=== PATIENT | male | born 1980 | race Caucasian/White ===

== ENCOUNTER 2020-04-28 17:07 | Emergency (ER) | payer OTHER, SELFPAY ==
[2020-04-28 17:18] VITALS: BMI 28.0
[2020-04-28 17:20] VITALS: BP 135/75; PULSE 58; RESP 16; TEMP 36.9; O2SAT 96
--- NOTE | 2020-04-28 17:28 | W.ED.ABDPA2 ---
HPI - Abdominal Pain General: Chief Complaint: Abdominal Pain Stated Complaint: ABD PAIN Time Seen by Provider: 04/28/20 17:28 Source: patient Mode of arrival: ambulatory Limitations: no limitations History of Present Illness: HPI narrative: 39-year-old male comes in today with right lower quadrant pain. Patient reports last night he started having right-sided abdominal pain that caused him become sick and throw up twice. Patient reports this morning his pain was better but has started to increase throughout the day. Patient had been seen in urgent care this morning and was started on some omeprazole for concerns of possible reflux. Patient also has a history of Gilbert's syndrome. Patient appears mildly unwell. Patient appears in moderate pain. Associated Symptoms: Reports nausea and vomiting Review of Systems General: Reports: 10 or more systems reviewed and unremarkable except in HPI and below GI: Reports: abdominal pain, nausea and vomiting PFS ED PFSH: Social History Smoking and tobacco status: never smoked Alcohol intake: never Physical Exam Const: COMMON NORMALS: no acute distress and patient oriented x3 GENERAL APPEARANCE: cooperative HENMT: COMMON NORMALS: normocephalic and Normal external nose present HEAD & SCALP: normal to inspection and normocephalic NOSE: Normal external nose present THROAT: posterior oropharynx normal Eye: GENERAL EYE: appearance normal, both eyes and all related structures Neck/C-Spine: COMMON NORMALS: full ROM Chest: COMMONS NORMALS: normal inspection of the chest Resp: COMMON NORMALS: normal respiratory effort EFFORT & INSPECTION: Yes able to speak in complete sentences Cardio: COMMON NORMALS: regular rate and regular rhythm RATE: regular rate RHYTHM: regular rhythm GI: COMMON NORMALS: Soft to palpation AUSCULTATION: Yes normoactive bowel sounds PALPATION: Yes Soft to palpation, Yes Tenderness to palpation present (GI) Details: RLQ and Yes Other GI palpation findings present (positive psoas sign) : COMMON NORMALS: Yes no CVA tenderness BLADDER/KIDNEY EXAM: Yes no CVA tenderness Back/Pelvis: COMMON NORMALS: no CVA tenderness and thoracic and lumbar spine normal to inspection Extremity: COMMON NORMALS: normal to inspection Neuro: COMMON NORMALS: patient oriented x3 and moves all extremities Psych: COMMON NORMALS: mental status grossly normal and cooperative Skin: COMMON NORMALS: no rashes or lesions noted NARRATIVE SKIN EXAM: mild jaundice GENERAL SKIN EXAM: no rashes or lesions noted Course Vital Signs: Vital signs: Vital Signs Temperature 98.4 F 04/28/20 17:20 Pulse Rate 58 L 04/28/20 17:20 Respiratory Rate 18 04/28/20 17:55 Blood Pressure 135/75 04/28/20 17:20 Pulse Oximetry 96 04/28/20 17:20 MDM - Abdominal Pain MDM Narrative: Medical decision making narrative: 39-year-old male patient comes in with right abdominal pain starting last evening. Patient also reported a couple episodes of emesis. Patient appears well. Patient appears in mild to moderate pain in the ER. Exam noted some right lower quadrant abdominal tenderness and a positive psoas sign. Bowel sounds were present. Patient was afebrile. Vital signs otherwise were normal. Differential diagnosis includes but not limited to appendicitis, cholecystitis, gastroenteritis, constipation. CBC was normal. CMP noted some mild elevation ALTs and AST's which are liver enzymes but they were not too significant. Lipase was normal. Urinalysis was normal. Patient did have some significant elevation in bilirubin which was removed believed to be related to his Gilbert's syndrome. CT scan of the abdomen and pelvis noted a large gallbladder which may or may not have some inflammation with recommendations for ultrasound follow-up. Appendix was normal. And noted some chronic constipation. Ultrasound was done then of the gallbladder and noted it to be normal. Patient was medicated with normal saline 1 L and 4 mg of morphine and 4 mg of ondansetron. Patient did have good results for pain control and appeared better. Discussed abnormalities with patient recommended magcitrate 1 bottle with follow-up as needed. Also recommend return to the ER for fever or blood in vomit or stool. Patient reported understanding agreed to plan. Lab Data: Labs: Lab Results 04/28/20 04/28/20 04/28/20 Range/Units 17:50 17:50 17:57 WBC 9.1 (4.0-10.0) 10^3/ uL RBC 4.71 (4.1-5.3) 10^6/u L Hgb 15.4 (11.7-16.6) g/dL Hct 42.6 (42.0-52.0) % MCV 90.4 (80-94) fL MCH 32.7 (28.0-34.0) pg MCHC 36.2 H (30.0-36.0) g/dL RDW 11.9 L (12.1-15.1) % Plt Count 237 (130-400) 10^3/c mm MPV 9.5 (7.4-10.4) fL Neut % (Auto) 80.3 % Lymph % (Auto) 11.6 % [place] % (Auto) 6.9 % Eos % (Auto) 0.7 % Baso % (Auto) 0.2 % Neut # (Auto) 7.27 (1.8-7.7) 10^3/u L Lymph # (Auto) 1.1 (0.8-4.8) 10^3/u L [place] # (Auto) 0.6 (0.2-0.9) 10^3/u L Eos # (Auto) 0.1 (0.0-0.8) 10^3/u L Baso # (Auto) 0.0 (0.0-0.1) 10^3/u L Nucleated RBC % (a uto) 0 % Nucleated RBCs # 0.0 /100WBC Sodium 137 (136-145) mmol/L Potassium 4.1 (3.5-5.1) mmol/L Chloride 106 (98-107) mmol/L Carbon Dioxide 22 (22-29) mmol/L Anion Gap 13.1 (5-19) BUN 15 (6-20) mg/dL Creatinine 0.8 (0.7-1.2) mg/dL GFR Calculation 108.8 (90-130) mL/min Glucose 127 H (65-115) mg/dL Calculated Osmolal ity 282 L (285-295) mOsm/k g Calcium 9.5 (8.5-10.5) mg/dL Total Bilirubin 7.6 H* (0.15-1.2) mg/dL AST 171 H (0-40) U/L ALT 78 H (0-41) U/L Alkaline Phosphata se 58 (40-130) IU/L Total Protein 7.0 (6.6-8.7) g/dL Albumin 4.6 (3.5-5.2) g/dL Globulin 2.4 (1.3-4.6) g/dL Lipase 38 (13-60) U/L Urine Color Dark yellow (Yellow) Urine Appearance Clear (CLEAR) Urine pH 5 (5-7) Ur Specific Gravit y 1.025 (1.005-1.030) Urine Protein Neg (Negative) Urine Glucose (UA) Norm (Normal) Urine Ketones Negative (Negative) Urine Blood Neg (Negative) Urine Nitrate Negative (Negative) Urine Bilirubin 1+ H (NEGATIVE) Prot Sulfosalicyli c Acd Negative (Negative) Urine Urobilinogen 1 H (Negative) mg/dL Ur Leukocyte Sandee ase Negative (Negative) Discharge Plan Discharge Patient Disposition: Home Clinical Impression: Constipation Qualifiers: Constipation type: unspecified constipation type Qualified Code(s): K59.00 - Constipation, unspecified Condition: Stable Prescriptions: No Action omeprazole 40 mg capsule,delayed release(DR/EC) 40 mg PO DAILY 14 Days Qty: 14 RF: 0 Discharge Orders: Discharge Order (Routine); Ordered 04/28/20 Ordered By: Troy Miles Discharge Diet: Usual diet Patient Instructions: Constipation (ED) Activity Restrictions/Additional Instructions: Home and rest. Drink plenty of fluids. Eat a healthy diet with plenty of vegetables and fruit. Return to the emergency department for high fever or blood in stool or vomit. Follow-up with primary care regarding liver panel labs that was done in urgent care. 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
--- NOTE | 2020-04-28 17:41 | CTR_ITS ---
PROCEDURE INFORMATION: Exam: CT Abdomen And Pelvis With Contrast Exam date and time: 04/28/2020 5:54 PM Age: 39 years old Clinical indication: Abdominal pain; Localized; Right; Patient HX: C/O R sided abd pain today; Additional info: Right lower quadrant pain TECHNIQUE: Imaging protocol: Computed tomography of the abdomen and pelvis with intravenous contrast. Radiation optimization: All CT scans at this facility use at least one of these dose optimization techniques: automated exposure control; mA and/or kV adjustment per patient size (includes targeted exams where dose is matched to clinical indication); or iterative reconstruction. Contrast material: OMNI 300; Contrast volume: 95 ml; Contrast route: INTRAVENOUS (IV); COMPARISON: No relevant prior studies available. RADIATION DOSE METRICS: Total DLP (mGy-cm): 790.41 FINDINGS: Liver: Normal. No mass. Gallbladder and bile ducts: Possible gallbladder wall thickening versus pericholecystic fluid along the superior aspect of the gallbladder. Pancreas: Normal. No ductal dilation. Spleen: The spleen is enlarged measuring 13.6 cm. Adrenals: Normal. No mass. Kidneys and ureters: Normal. No hydronephrosis. Stomach and bowel: There is an undigested tablet within the stomach. Colonic constipation is present. Appendix: A normal appendix is identified. Intraperitoneal space: Unremarkable. No free air. No significant fluid collection. Vasculature: Unremarkable. No abdominal aortic aneurysm. Lymph nodes: Unremarkable. No enlarged lymph nodes. Bladder: Unremarkable as visualized. Reproductive: Unremarkable as visualized. Bones/joints: Unremarkable. No acute fracture. Soft tissues: Tiny fat containing umbilical hernia. CT/CT abdomen pelvis w con* [id number] IMPRESSION: 1. Possible gallbladder wall thickening versus pericholecystic fluid along the superior aspect of the gallbladder. Right upper quadrant ultrasound for further evaluation as clinically warranted. 2. Colonic constipation is present. 3. Mild splenomegaly. Radiation Dose CTDIVOL = (mGy): DLP = 790.41 (mGy-cm)
[2020-04-28] MEDS: ondansetron 2 mg/ML SDV 2 mL 4 MG IVP (17:54)
[2020-04-28 17:55] VITALS: RESP 18
[2020-04-28] MEDS: morphine 4 mg/mL SDV 1 mL IVP (17:55)
[2020-04-28 18:00] LABS: Basophils % 0.2 %; Eosinophils # 0.1 10^3/uL (0.0-0.8); Eosinophils % 0.7 %; Hematocrit 42.6 % (42.0-52.0); Hemoglobin 15.4 g/dL (11.7-16.6); Lymphocytes # 1.1 10^3/uL (0.8-4.8); Lymphocytes % 11.6 %; Mean Corpuscular HGB Conc 36.2 g/dL (30.0-36.0); Mean Corpuscular Hemoglobin 32.7 pg (28.0-34.0); Mean Corpuscular Volume 90.4 fL (80-94); Mean Platelet Volume 9.5 fL (7.4-10.4); Monocytes # 0.6 10^3/uL (0.2-0.9); Monocytes % 6.9 %; Neutrophils # 7.27 10^3/uL (1.8-7.7); Neutrophils % 80.3 %; Nucleated Red Blood Cells % 0 %; Platelet Count 237 10^3/cmm (130-400); Red Blood Count 4.71 10^6/uL (4.1-5.3); Red Cell Distribution Width 11.9 % (12.1-15.1); White Blood Count 9.1 10^3/uL (4.0-10.0)
[2020-04-28] MEDS: iohexol 300 mg/mL 100 mL Btl IV (18:01)
[2020-04-28 18:17] LABS: Alanine Aminotransferase 78 U/L (0-41); Albumin Level 4.6 g/dL (3.5-5.2); Alkaline Phosphatase 58 IU/L (40-130); Anion Gap 13.1 (5-19); Aspartate Amino Transferase 171 U/L (0-40); Blood Urea Nitrogen 15 mg/dL (6-20); Calcium 9.5 mg/dL (8.5-10.5); Carbon Dioxide 22 mmol/L (22-29); Chloride 106 mmol/L (98-107); Globulin 2.4 g/dL (1.3-4.6); Glomerular Filtration Rate 108.8 mL/min (90-130); Glucose 127 mg/dL (65-115); Lipase 38 U/L (13-60); Osmolality Calculated 282 mOsm/kg (285-295); Potassium 4.1 mmol/L (3.5-5.1); Sodium 137 mmol/L (136-145)
--- NOTE | 2020-04-28 18:21 | USR_ITS ---
PROCEDURE INFORMATION: Exam: US Abdomen, Limited; Right Upper Quadrant Exam date and time: 04/28/2020 7:15 PM Age: 39 years old Clinical indication: Abdominal pain; Acute; Additional info: Ruq, R/O cholecystitis TECHNIQUE: Imaging protocol: US abdomen. Real time ultrasound with image documentation. Limited exam focused on the right upper quadrant. COMPARISON: CT abdomen pelvis w con* [id number] 04/28/2020 5:54 PM FINDINGS: Liver: Normal. No masses. Gallbladder: Gallbladder wall is normal in thickness measuring 2.7 mm. No evidence for gallbladder wall edema or pericholecystic fluid. The gallbladder is distended measuring 10.0 centimetres. Common bile duct: Normal. No stones. No dilation. Pancreas: Visualized pancreas is unremarkable. Right kidney: Normal. No mass. No hydronephrosis. US/US abdomen limited [id number] IMPRESSION: Gallbladder is distended. No evidence for wall thickening, stones, or pericholecystic fluid.
[2020-04-28 18:26] LABS: Add Urine Microscopic? NO
[2020-04-28 18:26] LABS: Total Bilirubin 7.6 mg/dL (0.15-1.2)
[2020-04-28 18:35] LABS: Bilirubin Urine 1+ (NEGATIVE); Blood Urine Neg (Negative); Glucose Urine UA Norm (Normal); Ketones Urine Negative (Negative); Leukocyte Esterase Urine Negative (Negative); Nitrate Urine Negative (Negative); Protein Urine Neg (Negative); Specific Gravity, Urine 1.025 (1.005-1.030); Sulfosalicylic Acid Urine Negative (Negative); Urine Appearance Clear (CLEAR); Urine Color Dark Yellow (Yellow); Urobilinogen Urine 1 mg/dL (Negative); pH Urine 5 (5-7)
[2020-04-28] MEDS: sodium chloride 0.9% 1,000 ML 999 ML IV (18:50)
[2020-04-28 19:32] VITALS: BP 104/61; PULSE 45; RESP 16; O2SAT 98
[2020-04-28] MEDS: magnesium citrate Btl 296 mL PO (19:32)
== END 2020-04-28 19:32 | disposition home or self-care (01) ==
PROVIDERS: Emergency Provider Nurse Practitioner Family
DX: K59.00 Constipation, unspecified (principal)
CPT/HCPCS: 12345; 74177; 76705; 80053; 80076; 81003; 83690; 85025; 96361; 96374; 96375; 99282; 99283; J2270; J2405; J7030; Q9967

== ENCOUNTER → 2022-01-29 11:28 | Outpatient (BNVA) | payer OTHER, SELFPAY | PROVIDERS: Visit Provider Dermatology | DX: Z20.822 Contact with and (suspected) exposure to COVID-19 (principal) | CPT/HCPCS: 87635 ==